=== PATIENT | female | born 1970 | race Caucasian/White ===

== ENCOUNTER 2021-04-13 23:08 | Emergency (ER) | payer SELFPAY ==
[~2021-04-13] VITALS: Ht 162.6 cm; Wt 55.0 kg
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
--- NOTE | 2021-04-13 23:21 | NUR ---
pt a,bulated to bathroom and back with steady gait.
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
[2021-04-13 23:54] LABS: BASOPHILS % (AUTO) 1 % (0-1); EOSINOPHILS % (AUTO) 1 % (1-7); LYMPHOCYTES % (AUTO) 24 % (22-44); MEAN CORPUSCULAR HEMOGLOBIN 31.6 pg (27.0-34.8); MEAN CORPUSCULAR HGB CONC 33.5 g/dL (32.4-35.8); MEAN PLATELET VOLUME 7.4 fL (7.4-10.4); MONOCYTES % (AUTO) 14 % (2-9); NEUTROPHILS % (AUTO) 60 % (42-75); PLATELET COUNT 247 x10^3/uL (130-400); RED BLOOD COUNT 4.28 x10^6/uL (3.82-5.3); RED CELL DISTRIBUTION WIDTH 15.3 % (9.6-15.2)
[2021-04-14 00:06] LABS: ALANINE AMINOTRANSFERASE 186 U/L (12-78); ALBUMIN 3.6 g/dL (3.4-5.0); ANION GAP 7 mmol/L (5-15); CALCIUM 7.7 mg/dL (8.5-10.1); CHLORIDE 108 mmol/L (98-107)
[2021-04-14 00:08] LABS: ALKALINE PHOSPHATASE 113 U/L (45-117); BILIRUBIN,TOTAL 0.5 mg/dL (0.2-1.0); TOTAL PROTEIN 7.1 g/dL (6.4-8.2)
[2021-04-14 00:13] LABS: SALICYLATE LEVEL < 1.7 mg/dL (2.8-20.0)
[2021-04-14 00:16] LABS: AMPHETAMINE SCREEN, URINE Negative (Negative); BARBITURATE SCREEN, URINE Negative (Negative); BENZODIAZEPINE SCREEN, URINE Negative (Negative); CANNABINOID SCREEN, URINE Negative (Negative); COCAINE SCREEN, URINE Negative (Negative); METHADONE SCREEN, URINE Negative (Negative); OPIATE SCREEN, URINE Negative (Negative)
[2021-04-14] MEDS ORDERED: CEFTRIAXONE 1,000 MG IM ONE (01:00)
[2021-04-14] MEDS ORDERED: AZITHROMYCIN 500 MG TABLET PO ONE (01:00)
[2021-04-14 01:01] LABS: WET PREP WBCS FEW (FEW)
[2021-04-14 01:10] LABS: CLUE CELLS NONE SEEN (NONE SEEN)
[2021-04-14] MEDS ORDERED: AZITHROMYCIN 500 MG TABLET ONE (01:44)
[2021-04-14] MEDS ORDERED: CEFTRIAXONE 1,000 MG ONE (01:45)
[2021-04-14 01:55] VITALS: BP 148/91
--- NOTE | 2021-04-14 02:16 | NUR ---
Patient/Caregiver given discharge instructions and they have confirmed that they understand the instructions. Patient ambulatory with steady gait. NAD, all questions answered appropriately, denies additional needs at this time. No personal belongings left in room after discharge.
== END 2021-04-14 02:27 | disposition home or self-care (01) ==
LOC: ED 23:51
DX: F41.1 Generalized anxiety disorder (principal); N72 Inflammatory disease of cervix uteri
CPT/HCPCS: 36415; 80053; 80299; 80307; 80320; 80329; 85025; 87210; 87491; 87591; 87808; 96372; 99283; J0696; G0480